=== PATIENT | female | born 1990 | race Caucasian/White ===

== ENCOUNTER 2016-10-29 16:52 | Emergency (ER) | payer OTHER ==
[2016-10-29 16:52] VITALS: BMI 23.0
[2016-10-29] MEDS ORDERED: Sodium Chloride 0.9% 1,000 ML IV STA (17:35)
[2016-10-29 18:25] LABS: URINE BILIRUBIN SMALL (NEGATIVE); URINE BLOOD SMALL (NEGATIVE); URINE GLUCOSE (UA) NEGATIVE (NEGATIVE); URINE KETONE >=80 mg/dL (NEGATIVE); URINE LEUKOCYTE ESTERASE NEGATIVE Leu/uL (NEGATIVE); URINE PROTEIN NEGATIVE mg/dL (<30 mg/dL); URINE UROBILINOGEN 0.2 E.U./dL (<1 E.U./dL)
[2016-10-29 18:32] LABS: ADD MANUAL DIFF? NO
[2016-10-29 18:32] LABS: URINE APPEARANCE CLEAR (CLEAR); URINE COLOR YELLOW (YELLOW)
[2016-10-29 18:35] LABS: BASO # 0.03 K/mm3 (0.0-2.0); BASO % 0.3 % (0.0-3.0); EOS # 0.1 (0.0-0.7); EOS % 0.8 % (1.5-5.0); GRAN # 7.34 (1.4-6.5); GRAN % 67.2 % (50.0-68.0); HEMATOCRIT 41.6 % (36.0-48.0); LYMPH # 2.5 (1.2-3.4); LYMPH % 22.7 % (22.0-35.0); MEAN CELL VOLUME 84.2 fL (80.0-105.0); MEAN CORPUSCULAR HEMOGLOBIN 27.9 pg (25.0-35.0); MEAN CORPUSCULAR HGB CONC 33.2 g/dl (31.0-37.0); MEAN PLATELET VOLUME 12.6 fl (7.0-11.0); PLATELET COUNT 151 10^3/uL (120.0-450.0); RED CELL DISTRIBUTION WIDTH 14.1 % (11.5-14.5); WHITE BLOOD COUNT 10.9 10^3/ul (4.5-11.0)
[2016-10-29 18:48] LABS: ALKALINE PHOSPHATASE 66 U/L (38-133); ALT/SGPT 24 U/L (7-56); AMYLASE 52 U/L (35-125); AST/SGOT 35 U/L (15-39); BILIRUBIN,TOTAL 0.7 mg/dL (0.2-1.3); BLOOD UREA NITROGEN 14 mg/dL (7-21); CALCIUM 9.3 mg/dL (8.4-10.5); CARBON DIOXIDE 30 mmol/L (21-33); CHLORIDE 100 mmol/L (98-107); GFR AFRICAN-AMERICAN > 60; GLUCOSE,RANDOM 84 mg/dL (70-110); LIPASE 31 U/L (23-300); POTASSIUM 4.4 mmol/L (3.6-5.0); SODIUM 140 mmol/L (132-148); TOTAL PROTEIN 8.6 g/dL (5.8-8.3)
[2016-10-29 18:52] LABS: URINE BACTERIA FEW (NEG); URINE RBC 0 - 2 /hpf (0-2); URINE WBC 0 - 2 /hpf (0-6)
[2016-10-29] MEDS ORDERED: Morphine 2 mg/ml ISec IVP STA (19:55)
--- NOTE | 2016-10-29 20:07 | ED PDOC ---
Arrival/HPI - General Chief Complaint: Abdominal Pain Time Seen by Provider: 10/29/16 17:35 Historian: Patient - History of Present Illness Narrative History of Present Illness (Text): 10/29/16 20:02 26-year-old female presents today sent in by her primary care physician for evaluation for lower abdominal pain. Patient states she started yesterday with some left-sided flank pain and today developed suprapubic pain. Patient rates the pain an 8 out of 10. She describes the pain as crampy and sharp sensation that is nonradiating. Patient states her primary care physician told her that there was blood in the urine. Patient denies vaginal bleeding or vaginal discharge. Patient states she had a in August and had follow-up and was told everything was okay. Patient denies at present time. Patient states she has not had a period since the . Patient denies chest pain or shortness of breath. Denies fevers or chills at home. No nausea or vomiting. No medications have been taken for pain at home. No other complaints Past Medical History - Provider Review Nursing Documentation Reviewed: Yes - Travel History Have you recently traveled outside [place] w/in the past 3 mons?: No - Infectious Disease Hx of Infectious Diseases: None - Tetanus Immunization Tetanus Immunization: Unknown - Past Medical History Past Medical History: No Previous - Psychiatric Hx Depression: No Hx Emotional Abuse: No Hx Physical Abuse: No Hx Substance Use: No - Past Surgical History Past Surgical History: No Previous - Suicidal Assessment Feels Threatened In Home Enviroment: No Family/Social History - Physician Review Nursing Documentation Reviewed: Yes Family/Social History: Unknown Family HX Smoking Status: Light Smoker < 10 Cigarettes Daily Hx Alcohol Use: No Hx Substance Use: No Hx Substance Use Treatment: No Allergies/Home Meds Allergies/Adverse Reactions: Allergies No Known Allergies Allergy (Verified 10/29/16 17:18) Review of Systems - Review of Systems Constitutional: absent: Fatigue, Fevers Respiratory: absent: SOB, Cough Cardiovascular: absent: Chest Pain, Palpitations Gastrointestinal: Abdominal Pain. absent: Constipation, Diarrhea, Nausea, Vomiting Genitourinary Female: Hematuria ((seen on UA at doctors office today) no gross hematuria). absent: Dysuria, Frequency, Urine Output Changes, Vaginal Bleeding , Vaginal Discharge Musculoskeletal: Back Pain. absent: Arthralgias, Neck Pain Skin: absent: Rash, Pruritis Neurological: absent: Headache, Dizziness Psychiatric: absent: Anxiety, Depression Physical Exam Vital Signs Reviewed: Yes Vital Signs Temp Pulse Resp BP Pulse Ox 10/29/16 20:39 98.5 F 76 16 100/59 L 97 10/29/16 17:12 97.9 F 73 18 124/85 99 Temperature: Afebrile Blood Pressure: Normal Pulse: Regular Respiratory Rate: Normal Appearance: Positive for: Well-Appearing, Non-Toxic, Uncomfortable Pain Distress: None Mental Status: Positive for: Alert and Oriented X 3 - Systems Exam Head: Present: Atraumatic Mouth: Present: Moist Mucous Membranes Neck: Present: Normal Range of Motion Respiratory/Chest: Present: Clear to Auscultation, Good Air Exchange. No: Respiratory Distress, Accessory Muscle Use Cardiovascular: Present: Regular Rate and Rhythm, Normal S1, S2. No: Murmurs Abdomen: Present: Tenderness (+ suprapubic tenderness), Normal Bowel Sounds, Guarding. No: Distention, Peritoneal Signs, Rebound, McBurney's Point Tender Genitourinary/Pelvic Exam: Present: Normal External Genitalia, Vaginal Discharge , Vaginal Bleeding, Cervical Motion Tendernes, Cervical os Closed, Other ( chaparoned by Johny olmos RN. ). No: Vaginal Lesions, Adenexal Tenderness, Adenexal Mass Back: Present: Normal Inspection. No: CVA Tenderness, Midline Tenderness, Paraspinal Tenderness Upper Extremity: Present: Normal Inspection Lower Extremity: Present: Normal ROM Neurological: Present: GCS=15 Skin: Present: Warm, Dry, Normal Color. No: Rashes Psychiatric: Present: Alert, Oriented x 3 Medical Decision Making ED Course and Treatment: 10/29/16 20:05 Patient is nontoxic well appearing with stable vital signs presenting with lower abdominal pain pt has rx for transvaginal US. hcg; negative x 2. CBC wnl CMP wnl Amylase wnl Lipase wnl Urinalysis + blood Ultrasound:FINDINGS: Uterus: Within normal limits in appearance. Measures 8.1 x 4.0 x 4.6 cm. Endometrial stripe does not appear abnormally thickened for the premenopausal state, measuring 1.2 cm. Cervix appears closed. Right ovary: Within normal limits in appearance, containing multiple follicles. Measures 2.4 x 1.9 x 1.7 cm. Flow seen in the right ovary on color and Doppler imaging. Left ovary: Within normal limits in appearance, containing multiple follicles. The largest follicle measures 7 mm, and appears mildly complex. Flow seen in the left ovary on color and Doppler imaging. Cul-de-sac: No free fluid. IMPRESSION: No significant abnormality identified. No evidence of ovarian torsion toradol IM; after toradol pt with slight improvement in pain; morphine added. CT abd/pelvis; FINDINGS: LIMITATIONS: Exam is somewhat limited by mild streak/motion artifact. LOWER THORAX: No infiltrate seen in the lung bases. ABDOMEN: LIVER: No acute abnormality of the liver identified. GALLBLADDER AND BILE DUCTS: No CT evidence of acute cholecystitis. No evidence of significant biliary ductal dilatation. PANCREAS: No CT evidence of acute pancreatitis. SPLEEN: No acute abnormality of the spleen identified. ADRENALS: No acute abnormality of the adrenal glands identified. KIDNEYS AND URETERS: No acute abnormality of the kidneys seen. No evidence of hydroureteronephrosis. STOMACH AND BOWEL: No acute abnormality of the stomach or duodenum identified. No evidence of small bowel obstruction. No acute abnormality of the colon identified. APPENDIX: Appendix is seen, and is within normal limits in appearance. PELVIS: BLADDER: Mild thickening of the bladder wall. REPRODUCTIVE: See below. No acute abnormality of the uterus identified. No evidence of large adnexal masses. ABDOMEN and PELVIS: INTRAPERITONEAL SPACE: Subtle stranding of the pelvic fat is seen. This is of uncertain clinical significance. It abuts the uterus and adnexa, and could potentially be secondary to mild pelvic inflammatory disease. There is no evidence of large cystic adnexal masses. No evidence of free air. BONES/JOINTS: No acute fractures or other acute bony abnormality noted. SOFT TISSUES: No acute abnormality of the visualized soft tissues is seen. VASCULATURE: No evidence of abdominal aortic aneurysm. No evidence of periaortic hemorrhage. LYMPH NODES: No evidence of diffuse lymphadenopathy. IMPRESSION: - Mild bladder wall thickening. This is a nonspecific finding, but can be seen with cystitis. Recommend clinical correlation. - Subtle stranding of the pelvic fat, of uncertain clinical significance, but could potentially be due to mild pelvic inflammatory disease. No evidence of cystic adnexal masses. - See above for remaining findings. pt admits to having cheated on her partner of 5years; states she hasnt seen HOME DELIVERY DRIVER in over a year. pt with white/yellow vaginal discharge and vaginal bleeding; will send GC/ chlamydia cultures. Patient reassessment:after morphine and toradol pt feeling better pt seen and evaluated by dr. armenta. will treat for PID: rocephin 250mg IM, zithromax 1g PO, flagyl 2g po will d/c home on doxycycline twice daily 14 days. Discussed all results with patient in depth. Advised follow-up with the chimney mechanic tomorrow/within the next 2 days. Advised taking antibiotics as prescribed and taking Motrin for pain. Advised immediate return is symptoms worsen persist or if new concerning symptoms develop Patient verbalizes understanding of discharge instructions and need for immediate followup. all aspects of this case were discussed the attending of record. Impression: Abdominal pain, PID Motrin every 6 hours as needed for pain doxycycline; 1 tablet twice daily x 14 days Follow up with primary care physician within the next 2 days Follow up with the HOME DELIVERY DRIVER tomorrow Return immediately if symptoms worsen persist or if new symptoms develop: High fevers, increasing pain, vomiting, diarrhea or any other concerning symptoms develop. - Lab Interpretations Lab Results: 10/29/16 18:28 10/29/16 18:28 Lab Results 10/29/16 18:28: WBC 10.9, RBC 4.94, Hgb 13.8, Hct 41.6, MCV 84.2, MCH 27.9, MCHC 33.2, RDW 14.1, Plt Count 151, MPV 12.6 H, Gran % 67.2, Lymph % (Auto) 22.7 , [place] % (Auto) 9.0 H, Eos % (Auto) 0.8 L, Baso % (Auto) 0.3, Gran # 7.34 H, Lymph # 2.5, [place] # 1.0 H, Eos # 0.1, Baso # 0.03, Sodium 140, Potassium 4.4, Chloride 100, Carbon Dioxide 30, Anion Gap 14, BUN 14, Creatinine 0.6, Est GFR ( Amer) > 60, Est GFR (Non-Af Amer) > 60, Random Glucose 84, Calcium 9.3, Total Bilirubin 0.7, AST 35, ALT 24, Alkaline Phosphatase 66, Total Protein 8.6 H, Albumin 4.4, Globulin 4.2, Albumin/Globulin Ratio 1.0 L, Amylase 52, Lipase 31 10/29/16 18:12: Urine Color Yellow, Urine Appearance Clear, Urine pH 6.0, Ur Specific [place] 1.025, Urine Protein Negative, Urine Glucose (UA) Negative, Urine Ketones >=80, Urine Blood Small H, Urine Nitrate Negative, Urine Bilirubin Small H, Urine Urobilinogen 0.2, Ur Leukocyte Esterase Negative, Urine RBC 0 - 2, Urine WBC 0 - 2, Ur Epithelial Cells 1 - 3, Urine Bacteria Few , Urine HCG, Qual Negative - RAD Interpretation Radiology Orders: 10/29/16 17:56 TRANSVAGINAL [US] Stat 10/29/16 19:08 ABD & PELVIS W/O PO OR IV CONT [CT] Stat - Medication Orders Current Medication Orders: Discontinued Medications Azithromycin (Zithromax) 1,000 mg PO STAT STA PRN Reason: Protocol Stop: 10/29/16 20:54 Ceftriaxone Sodium (Rocephin) 250 mg IM STAT STA PRN Reason: Protocol Stop: 10/29/16 20:54 Sodium Chloride (Sodium Chloride 0.9%) 1,000 mls @ 999 mls/hr IV .Q1H1M STA Stop: 10/29/16 18:35 Last Admin: 10/29/16 18:50 Dose: 999 MLS/HR eMAR Start Stop Document 10/29/16 18:50 [facility] (Rec: 10/29/16 18:50 [id number]) Intravenous Solution Start Date 10/29/16 Start Time 18:50 End Date 10/29/16 Ketorolac Tromethamine (Toradol) 30 mg IVP STAT STA Stop: 10/29/16 18:58 Last Admin: 10/29/16 19:13 Dose: 30 MG IVP Administration Document 10/29/16 19:13 [facility] (Rec: 10/29/16 19:13 [id number]) Charges for Administration # of IVP Administrations 1 Metronidazole (Flagyl) 2,000 mg PO STAT STA PRN Reason: Protocol Stop: 10/29/16 20:54 Morphine Sulfate (Morphine) 2 mg IVP STAT STA Stop: 10/29/16 19:56 Last Admin: 10/29/16 20:06 Dose: 2 MG MAR Pain Assessment Document 10/29/16 20:06 [email or web address] (Rec: 10/29/16 20:07 [id number]) Pain Reassessment Is this a pain reassessment? No Sleep Is patient sleeping during reassessment? No Presence of Pain Presence of Pain Yes Pain Scale Used Pain Scale Used Numeric Location Upper or Lower Lower Pain Location Body Site Abdomen Description Description Constant Intensity of Pain at present 6 Pain Behavior Facial Grimacing Aggravating Factors Changing Position Alleviating Factors/Management Position Change Techniques IVP Administration Document 10/29/16 20:06 [facility] (Rec: 10/29/16 20:07 [id number]) Charges for Administration # of IVP Administrations 1 Disposition/Present on Arrival - Present on Arrival Any Indicators Present on Arrival: No History of DVT/PE: No History of Uncontrolled Diabetes: No Urinary Catheter: No History of Decub. Ulcer: No History Surgical Site Infection Following: None - Disposition Have Diagnosis and Disposition been Completed?: Yes Diagnosis: PID (pelvic inflammatory disease), Abdominal pain Disposition: HOME/ ROUTINE Disposition Time: 20:57 Patient Plan: Discharge Patient Problems: Current Active Problems Problem Status Diagnosed Abdominal pain Acute PID (pelvic inflammatory disease) Acute Condition: GOOD Discharge Instructions (ExitCare): Pelvic Inflammatory Disease (ED) Additional Instructions: Motrin every 6 hours as needed for pain doxycycline; 1 tablet twice daily x 14 days Follow up with primary care physician within the next 2 days Follow up with the HOME DELIVERY DRIVER tomorrow Return immediately if symptoms worsen persist or if new symptoms develop: High fevers, increasing pain, vomiting, diarrhea or any other concerning symptoms develop. Prescriptions: Doxycycline Hyclate 100 mg PO BID #28 capsule Ibuprofen [Motrin] 600 mg PO Q6H PRN #20 tab PRN Reason: pain/fever reduction Referrals: Alanis Gomes MD [Staff Provider] - [facility] - Follow up with primary Ana Laura Tan MD [Staff Provider] - Follow up with primary Forms: WORK NOTE
--- NOTE | 2016-10-29 20:24 | US ---
EXAM: US Pelvis Complete, Transabdominal. US Pelvis, Transvaginal. CLINICAL HISTORY: 26 years old, female; Pain; Pelvic pain TECHNIQUE: Real-time transabdominal and transvaginal pelvic ultrasound (complete) with image documentation. Transvaginal imaging was used for better evaluation of the endometrium and adnexa. EXAM DATE/TIME: 10/29/2016 5:56 PM COMPARISON: No relevant prior studies available. FINDINGS: Uterus: Within normal limits in appearance. Measures 8.1 x 4.0 x 4.6 cm. Endometrial stripe does not appear abnormally thickened for the premenopausal state, measuring 1.2 cm. Cervix appears closed. Right ovary: Within normal limits in appearance, containing multiple follicles. Measures 2.4 x 1.9 x 1.7 cm. Flow seen in the right ovary on color and Doppler imaging. Left ovary: Within normal limits in appearance, containing multiple follicles. The largest follicle measures 7 mm, and appears mildly complex. Flow seen in the left ovary on color and Doppler imaging. Cul-de-sac: No free fluid. IMPRESSION: No significant abnormality identified. No evidence of ovarian torsion. See above for remaining findings.
[2016-10-29 20:39] VITALS: BP 100/59; PULSE 76; RESP 16; TEMP 98.5
[2016-10-29] MEDS ORDERED: cefTRIAXone (Rocephin) 250 mg Inj IM STA (20:53)
[2016-10-29 21:30] VITALS: O2SAT 98
--- NOTE | 2016-10-30 09:27 | CT ---
PROCEDURE: CT Abdomen and Pelvis without intravenous contrast HISTORY: ABDOMINAL PAIN/left flank COMPARISON: None. TECHNIQUE: CT scan of the abdomen and pelvis was performed without administration of oral or intravenous contrast for targeted evaluation of urinary calculi. Coronal and sagittal reformatted images were obtained. Radiation dose: Total exam DLP = 330.90 mGy-cm. FINDINGS: LOWER THORAX: The lung bases are clear. LIVER: The liver is normal in size. There is no intrahepatic biliary ductal dilatation. GALLBLADDER AND BILE DUCTS: There are no calcified gallstones. PANCREAS: The pancreas is normal in size without ductal dilatation or calcifications. SPLEEN: The spleen is normal in size. ADRENALS: Both adrenal glands are normal without discrete nodule. KIDNEYS AND URETERS: Both kidneys are normal in size without hydronephrosis or nephrolithiasis. VASCULATURE: The aorta is normal in caliber. BOWEL: The small bowel loops are normal in caliber. The colon is unremarkable. APPENDIX: No inflammatory changes in the right lower quadrant. The appendix is normal in caliber. PERITONEUM: No free fluid. No free air. LYMPH NODES: No enlarged lymph nodes. BLADDER: The urinary bladder is partially distended and there is apparent mild mural thickening. REPRODUCTIVE: The uterus is normal in size. There are no adnexal masses. . BONES: Within normal limits for the patient's age. No acute fracture. OTHER FINDINGS: None. IMPRESSION: Apparent mild mural thickening of the bladder wall is nonspecific and could be related to underdistention however cystitis cannot be excluded. Please correlate with urinalysis. A preliminary report was provided by [facility].
== END 2016-10-29 21:29 | disposition home or self-care (01) ==
LOC: ED 16:52
DX: R10.9 Unspecified abdominal pain (principal); N73.9 Female pelvic inflammatory disease, unspecified; F17.210 Nicotine dependence, cigarettes, uncomplicated
CPT/HCPCS: 74176; 76830; 80053; 81001; 82150; 83690; 84703; 85025; 87491; 87591; 96372; 96374; 96375; 99283; J0696; J1885; J2270; J7040